=== PATIENT | female | born 1980 | race African-American/Black ===

== ENCOUNTER 2016-11-29 19:13 | Emergency (ER) | payer OTHER ==
[2016-11-29 19:23] VITALS: BP 122/85; PULSE 102; TEMP 98.6; BMI 28.0
[2016-11-29 19:32] LABS: URINE BILIRUBIN Negative (NEGATIVE); URINE BLOOD Trace-lysed (NEGATIVE); URINE GLUCOSE (UA) Negative (NEGATIVE); URINE KETONE Trace (NEGATIVE); URINE LEUK ESTERASE Negative (NEGATIVE); URINE NITRITE Negative (NEGATIVE); URINE UROBILINOGEN 1.0 E.U/dl (0.2-1.0)
[2016-11-29 19:36] LABS: URINE APPEARANCE CLOUDY; URINE COLOR YELLOW; URINE PROTEIN 1+ (NEGATIVE)
[2016-11-29 19:47] LABS: URINE WBC 0-2 (3-5)
[2016-11-29 19:48] LABS: URINE BACTERIA FEW /hpf (NEGATIVE)
--- NOTE | 2016-11-29 19:50 | PDOC ---
History of Present Illness - General History Source: Patient Exam Limitations: No Limitations - History of Present Illness Initial Comments: 11/29/16 19:59 Patient is a 36 year old female with a significant past medical history of anemia, migraine and gastritis who presents to the ED with left sided back pain. Patient reports the pain with sudden onset while she was walking to her car she developed an aching sensation. She states that the pain is exacerbated by deep inspiration and movement. Patient has been taking tylenol to alleviate the pain and using heating pad with no relief. Patient notes that stretching the the muscle over the course of couple of days does not alleviate the pain. She reports nausea denies any vomiting. She denies any heavy lifting, recent trauma or strenuous activity. No cough, fever, cold symptoms, cp or SOB. PSH: appendectomy, C section ALL: NKDA Social: denies alcohol, drug cigarette use <Hailee Clements - Last Filed: 11/29/16 20:46> <Chelsie Palomino - Last Filed: 11/30/16 04:19> - General Chief Complaint: Back Pain Stated Complaint: BACK PAIN Time Seen by Provider: 11/29/16 19:24 Past History <Hailee Clements - Last Filed: 11/29/16 20:46> - Past Medical History Anemia: Yes GI Disorders: Yes (GASTRITIS) Disorders: Yes (BLADDER FIBROID) - Surgical History Appendectomy: Yes - Immunization History Immunization Up to Date: No - Psycho/Social/Smoking Cessation Hx Anxiety: No Suicidal Ideation: No Smoking History: Never smoked Have you smoked in the past 12 months: No Hx Alcohol Use: No Drug/Substance Use Hx: No Substance Use Type: None <Chelsie Palomino - Last Filed: 11/30/16 04:19> - Past Medical History Allergies/Adverse Reactions: Allergies Allergy/AdvReac Type Severity Reaction Status Date / Time No Known Allergies Allergy Verified 09/24/15 09:00 Home Medications: Ambulatory Orders Acetaminophen [Tylenol -] 1,000 mg PO PRN PRN 11/29/16 Ferrous Gluconate [Iron] 256 mg PO DAILY 11/29/16 Tramadol HCl 50 mg PO TID PRN #12 tablet MDD 3 tabs 11/29/16 Review of Systems - Review of Systems Able to Perform ROS?: Yes Comments:: 11/29/16 20:00 CONSTITUTIONAL: Absent: fever, no chills, no fatigue EYES: Absent: visual changes ENT: Absent: ear pain, no sore throat CARDIOVASCULAR: Absent: chest pain, no palpitations RESPIRATORY: Absent: cough, no SOB GI: Absent: abdominal pain, no nausea, no vomiting, no constipation, no diarrhea GENITOURINARY: Absent: dysuria, no frequency, no hematuria MUSCULOSKELETAL: Present: back pain Absent: no arthralgia, no myalgia SKIN: Absent: rash NEURO: Absent: headache <Hailee Clements - Last Filed: 11/29/16 20:46> *Physical Exam - Vital Signs Last Vital Signs Temp Pulse Resp BP Pulse Ox 98.6 F 102 H 18 122/85 99 11/29/16 19:21 11/29/16 19:21 11/29/16 19:21 11/29/16 19:21 11/29/16 19:21 - Physical Exam Comments: 11/29/16 20:00 GENERAL: The patient is awake, alert, and fully oriented, in no acute distress. HEAD: Normal with no signs of trauma. EYES: Pupils equal, round and reactive to light, extraocular movements intact, sclera anicteric, conjunctiva clear with no pallor. ENT: Ears normal, nares patent, oropharynx clear without exudates. Moist mucous membranes. NECK: Normal range of motion, supple without lymphadenopathy, JVD, or masses. LUNGS: Breath sounds equal, clear to auscultation bilaterally. No wheeze/ crackles. HEART: Regular rate and rhythm, normal S1 and S2 without murmur or rub. ABDOMEN: Soft/nontender/nondistended. BS wnl. No guarding or rebound. No palpable masses. No hepatosplenomegaly. MUSCULOSKELETAL: (+)marked tenderness of the left posterior chest wall and rib and intercostal spaces 8-10, no step off or crepitus, (+)Minimal left CVA tenderness EXTREMITIES: Normal range of motion, no edema. No clubbing or cyanosis. No cords, erythema, or tenderness. NEUROLOGICAL: Cranial nerves II through XII grossly intact. Normal speech, normal gait. PSYCH: Normal mood, normal affect. SKIN: Warm, Dry, normal turgor, no rashes or lesions noted. <Hailee Clements - Last Filed: 11/29/16 20:46> - Vital Signs Last Vital Signs Temp Pulse Resp BP Pulse Ox 98.6 F 102 H 18 122/85 99 11/29/16 19:21 11/29/16 19:21 11/29/16 19:21 11/29/16 19:21 11/29/16 19:21 <Chelsie Palomino - Last Filed: 11/30/16 04:19> ED Treatment Course - LABORATORY CBC & Chemistry Diagram: 11/29/16 20:12 11/29/16 20:12 - ADDITIONAL ORDERS Additional order review: Laboratory Results 11/29/16 19:00 Urine Color Yellow Urine Appearance Cloudy Urine pH 7.0 Ur Specific [place] 1.020 Urine Protein 1+ H Urine Glucose (UA) Negative Urine Ketones Trace Urine Blood Trace-lysed Urine Nitrite Negative Urine Bilirubin Negative Urine Urobilinogen 1.0 e.u/dl Ur Leukocyte Esterase Negative Urine RBC 2-5 Urine WBC 0-2 Ur Epithelial Cells 2-5 Urine Bacteria Few Urine HCG, Qual Negative <Hailee Clements - Last Filed: 11/29/16 20:46> - LABORATORY CBC & Chemistry Diagram: 11/29/16 20:12 11/29/16 20:12 - ADDITIONAL ORDERS Additional order review: Laboratory Results 11/29/16 19:00 Urine Color Yellow Urine Appearance Cloudy Urine pH 7.0 Ur Specific [place] 1.020 Urine Protein 1+ H Urine Glucose (UA) Negative Urine Ketones Trace Urine Blood Trace-lysed Urine Nitrite Negative Urine Bilirubin Negative Urine Urobilinogen 1.0 e.u/dl Ur Leukocyte Esterase Negative Urine HCG, Qual Negative <Chelsie Palomino - Last Filed: 11/30/16 04:19> Progress Note - Progress Note Progress Note: Documentation has been prepared under my direction and personally reviewed by me in its entirety. I attest that this documented accurately reflects all work, treatment, procedures and medical decision making performed by me. <Chelsie Palomino - Last Filed: 11/30/16 04:19> Medical Decision Making - Medical Decision Making As noted above, this 36-year-old woman presents with left posterior lower chest wall tenderness and pain with deep breathing and movement. The patient cannot recall any trauma or overuse of chest wall muscles. No other associated symptoms. Exam as noted. No significant CVA or flank tenderness present. Tenderness is localized in the lower chest wall Urinalysis shows few RBCs/few WBCs and few bacteria. Urine was sent for culture and sensitivity CBC is notable for mild anemia with hematocrit of 29 White blood cell count is nonelevated Chest x-ray was performed to evaluate for effusion/infiltrates or other acute pathology. Chest x-ray shows no acute disease Patient was given 30 mg of Toradol IV which caused a mild amount of relief of the pain. 1 g of acetaminophen IV was also started the patient felt dyspepsia and infusion was stopped. Patient given Maalox 30ml ESR is slightly elevated at 30. Results discussed with the patient. Clinical presentation most consistent with chest wall strain; it is unclear exactly how this occurred. The patient will continue local warmth to the area and Tylenol for mild pain. Prescription for tramadol , 50 mg (#12) to be used for more severe pain will be transmitted to her pharmacy She should return to the ER if she has worsening pain or <Chelsie Palomino - Last Filed: 11/30/16 04:19> *DC/Admit/Observation/Transfer - Attestations Scribe Attestion: 11/29/16 20:02 Documentation prepared by HILARIO Mckoy, acting as medical researcher for Chelsie Palomino MD. <Hailee Clements - Last Filed: 11/29/16 20:46> <Chelsie Palomino - Last Filed: 11/30/16 04:19> Diagnosis at time of Disposition: Strain of chest wall Qualifiers: Encounter type: initial encounter Qualified Code(s): S29.011A - Strain of muscle and tendon of front wall of thorax, initial encounter - Discharge Dispostion Disposition: HOME Condition at time of disposition: Stable - Prescriptions Prescriptions: Tramadol HCl 50 mg PO TID PRN #12 tablet MDD 3 tabs PRN Reason: Severe Pain - Referrals Referrals: STAFF,NOT ON [Primary Care Provider] - - Patient Instructions Printed Discharge Instructions: DI for Muscle Strain Additional Instructions: Local warmth to area of pain Tylenol as needed for [id number] pain Tramadol up to 3 times a day as needed for more severe pain Return to ER if you have persistent severe pain or shortness of breath/fever Follow-up with your general doctor within the next 5 days Follow-up with your operator vacuum within the next week
[2016-11-29] MEDS ORDERED: KETOROLAC TROMETHAMINE 30 MG/1 ML VIAL IVPUSH ONE (19:59)
[2016-11-29] MEDS ORDERED: KETOROLAC TROMETHAMINE 30 MG/1 ML VIAL ONE (20:04)
[2016-11-29 20:25] LABS: EOSINOPHIL 1.5 % (0-4.5)
[2016-11-29 20:34] LABS: BASOPHIL 3.5 % (0-2.0); MCH 25.8 pg (25.7-33.7); MCHC 31.9 g/dl (32.0-36.0); MEAN CELL VOLUME 80.7 fl (80-96); MEAN PLT VOLUME 8.4 fl (7.5-11.1); NEUTROPHILS 56.9 % (42.8-82.8); PLATELET COUNT 385 K/MM3 (134-434); RDW 17.3 % (11.6-15.6)
[2016-11-29 20:41] LABS: ALBUMIN 3.6 g/dl (3.5-5.0); ALK PHOS 58 U/L (32-92); ANION GAP 7 (8-16); BILIRUBIN,TOTAL 0.3 mg/dl (0.2-1.0); CALCIUM 8.9 mg/dl (8.4-10.2); CO2 25 mmol/L (22-28); CREATININE 0.6 mg/dl (0.6-1.3); GLUCOSE,RANDOM 104 mg/dl (74-106); SGOT/AST 19 U/L (10-42); SGPT/ALT 15 U/L (10-40); TOT PROT 7.1 g/dl (6.4-8.3)
[2016-11-29] MEDS ORDERED: ACETAMINOPHEN 1000 MG/100 ML VIAL (NON FORMULARY) IVPB ONE (20:58)
[2016-11-29] MEDS ORDERED: ACETAMINOPHEN INJECTION 100 ML IVPB ONE (21:07)
[2016-11-29] MEDS ORDERED: MAG HYDROX/AL HYDROX/SIMETH 30 ML UNIT-DOSE CUP ONE (21:21)
[2016-11-29] MEDS ORDERED: MAG HYDROX/AL HYDROX/SIMETH 30 ML UNIT-DOSE CUP PO ONE (21:21)
== END 2016-11-29 21:54 | disposition home or self-care (01) ==
LOC: FER 19:13
PROC: 3E033NZ Introduction of Analgesics, Hypnotics, Sedatives into Peripheral Vein, Percutaneous Approach (ICD-10-PCS; principal; 2016-11-29)
PROC: 3E033GC Introduction of Other Therapeutic Substance into Peripheral Vein, Percutaneous Approach (ICD-10-PCS; 2016-11-29)
DX: S29.011A Strain of muscle and tendon of front wall of thorax, initial encounter (principal); K52.9 Noninfective gastroenteritis and colitis, unspecified; D64.9 Anemia, unspecified; X58.XXXA Exposure to other specified factors, initial encounter; Y93.9 Activity, unspecified; Y92.9 Unspecified place or not applicable
CPT/HCPCS: 36415; 71020-TC; 80053; 81003; 81015; 84703; 85025; 85651; 87086; 99283-25

== ENCOUNTER 2018-10-13 19:09 | Emergency (ER) | payer OTHER ==
[2018-10-13 19:20] VITALS: BP 132/82; PULSE 93; TEMP 98.6; BMI 29.5
[2018-10-13] MEDS ORDERED: NAPROXEN 500 MG TABLET (FP) PO ONE (19:23)
[2018-10-13] MEDS ORDERED: NAPROXEN 500 MG TABLET (FP) ONE (19:24)
--- NOTE | 2018-10-13 19:29 | PDOC ---
History of Present Illness - General Chief Complaint: Pain Stated Complaint: LEFT SHOULDER PAIN DOWN LEFT ARM FOR 1 MONTH Time Seen by Provider: 10/13/18 19:11 - History of Present Illness Initial Comments: 10/13/18 19:51 The patient is a 38 year old female with a significant past medical history of anemia, migraines and GERD who presents to the ED with 1.5 months of L shoulder pain. The patient describes her pain as localized to her shoulder joint, with occasional radiation towards her hand. Pt denies any injuries to the shoulder. 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 The pain is worse with elevation of her L arm and any internal or external rotation of the arm. The patient states she took Tylenol with mild relief. She denies any neck pain. Denies any numbness in the arm. The patient denies chest pain, shortness of breath, headache or dizziness. The patient denies fever, chills, nausea, vomit, diarrhea or constipation. The patient denies dysuria, frequency, urgency or hematuria. Allergies: mushroom Past surgical history: Appendectomy, hysterectomy Social history: None reported PCP: Dr. Meliza Madrigal Past History - Past Medical History Allergies/Adverse Reactions: Allergies Allergy/AdvReac Type Severity Reaction Status Date / Time mushroom Allergy Mild Verified 10/13/18 19:13 Home Medications: Ambulatory Orders Esomeprazole Magnesium [Nexium 24Hr] 22.3 mg PO DAILY #30 capsule. 10/13/18 Naproxen 500 mg PO BID PRN #30 tablet 10/13/18 Anemia: Yes COPD: No GI Disorders: Yes (GASTRITIS) Disorders: Yes (BLADDER FIBROID) - Surgical History Appendectomy: Yes - Immunization History Immunization Up to Date: No - Suicide/Smoking/Psychosocial Hx Smoking History: Never smoked Have you smoked in the past 12 months: No Information on smoking cessation initiated: No Hx Alcohol Use: No Drug/Substance Use Hx: No Substance Use Type: None Review of Systems - Review of Systems Comments:: 10/13/18 19:54 GENERAL/CONSTITUTIONAL: No fever or chills. No weakness. HEAD, EYES, EARS, NOSE AND THROAT: No change in vision. No ear pain or discharge. No sore throat. CARDIOVASCULAR: No chest pain or shortness of breath. RESPIRATORY: No cough, wheezing, or hemoptysis. GASTROINTESTINAL: No nausea, vomiting, diarrhea or constipation. GENITOURINARY: No dysuria, frequency, or change in urination. MUSCULOSKELETAL(+) L shoulder pain, No neck or back pain. SKIN: No rash NEUROLOGIC: No headache, vertigo, loss of consciousness, or change in strength/ sensation. ENDOCRINE: No increased thirst. No abnormal weight change. HEMATOLOGIC/LYMPHATIC: No anemia, easy bleeding, or history of blood clots. ALLERGIC/IMMUNOLOGIC: No hives or skin allergy. *Physical Exam - Vital Signs Last Vital Signs Temp Pulse Resp BP Pulse Ox 98.6 F 93 H 16 132/82 100 10/13/18 19:10 10/13/18 19:10 10/13/18 19:10 10/13/18 19:10 10/13/18 19:10 - Physical Exam Comments: 10/13/18 19:54 GENERAL: Awake, alert, and fully oriented, in no acute distress. HEAD: No signs of trauma EYES: PERRLA, EOMI, sclera anicteric, conjunctiva clear ENT: Auricles normal inspection, hearing grossly normal, nares patent, oropharynx clear without exudates. Moist mucosa NECK: Nontender, no stepoffs, Normal ROM, supple, no lymphadenopathy, JVD, or masses LUNGS: Breath sounds equal, clear to auscultation bilaterally. No wheezes, and no crackles HEART: Regular rate and rhythm, normal S1 and S2, no murmurs, rubs or gallops ABDOMEN: Soft, nontender, normoactive bowel sounds. No guarding, no rebound. No masses EXTREMITIES: L shoulder with no deformity, + tenderness to anterior glenoid, full internal rotation, external rotation and abduction limited 2/2 pain, neurvascularly intact distally NEUROLOGICAL: Cranial nerves II through XII intact. 5/5 strength and sensation in all extremities, Normal speech, normal gait, normal cerebellar function SKIN: Warm, Dry, normal turgor, no rashes or lesions noted. Medical Decision Making - Medical Decision Making 10/13/18 19:32 38 F with L shoulder pain x 1.5 months. Likely rotator cuff injury, as pain is localized to pt's anterior glenoid, worsened with abduction and external rotation. Pt without any CP/SOB to suggest ACS. No cardiac risk factors. Also possible neuropathy given shooting pain down arm. However, pt neurovascularly intact in arm with no neck pain. Pt with no deformity or h/o trauma to suggest acute fx/dislocation. No indication for XR at this time. - NSAIDS - Ortho f/u Pt is well appearing, with normal vitals. Clinically stable for DC at this time. I discussed the physical exam findings, ancillary test results and final diagnoses with the patient. I answered all of the patient's questions. The patient was satisfied with the care received and felt comfortable with the discharge plan and treatment plan. The patient agrees to follow up with the primary care physician within 24-72 hours. *DC/Admit/Observation/Transfer Diagnosis at time of Disposition: Left shoulder pain - Discharge Dispostion Disposition: HOME Condition at time of disposition: Stable - Prescriptions Prescriptions: Esomeprazole Magnesium [Nexium 24Hr] 22.3 mg PO DAILY #30 capsule. Naproxen 500 mg PO BID PRN #30 tablet PRN Reason: Pain - Referrals Referrals: Deejay Garcia MD [Staff Physician] - - Patient Instructions Printed Discharge Instructions: DI for Shoulder Pain Additional Instructions: Your shoulder pain may be due to a rotator cuff injury. You should see an orthopedic surgeon for further evaluation, as you may need a MRI. Call Dr. Garcia to make an appointment within 1 week. Take the naproxen as prescribed for pain. Be sure to take an antacid with the medication, as it may upset your stomach. If you experience worsening pain, pain radiating to your chest, shortness of breath, or any other concerning symptoms, return to the ER immediately. - Post Discharge Activity - Attestations Physician Attestion: 10/13/18 19:32 I, Dr. Marquise Giron MD, attest that this document has been prepared under my direction and personally reviewed by me in its entirety. I further attest, that it accurately reflects all work, treatment, procedures and medical decision -making performed by me.
== END 2018-10-13 20:01 | disposition home or self-care (01) ==
LOC: FER 19:09
DX: M25.512 Pain in left shoulder (principal)
CPT/HCPCS: 99282-25